=== PATIENT | male | born 1970 | race Caucasian/White ===

== ENCOUNTER 2018-07-15 00:40 | Emergency (ER) | payer OTHER ==
[~2018-07-15] VITALS: Ht 167.6 cm; Wt 68.2 kg
[2018-07-15 00:41] VITALS: BP 102/58
[2018-07-15] MEDS ORDERED: VITA-122 PO (00:51)
[2018-07-15] MEDS ORDERED: VITAE20CA PO (00:51)
[2018-07-15] MEDS ORDERED: DERMABOND TOPICAL SKIN ADHESIVE TOP ONE (01:30)
== END 2018-07-15 02:20 | disposition home or self-care (01) ==
LOC: M ED 00:40
DX: S01.312A Laceration without foreign body of left ear, initial encounter (principal); W06.XXXA Fall from bed, initial encounter; Y92.099 Unspecified place in other non-institutional residence as the place of occurrence of the external cause; Y93.89 Activity, other specified; Y99.9 Unspecified external cause status; Z79.899 Other long term (current) drug therapy